=== PATIENT | female | born 1990 | race Caucasian/White ===

== ENCOUNTER → 2016-12-30 | Outpatient (CLI) | payer BC ==
[~2016-12-30] MED LIST: AMOX875T PO; BUPR-79 PO
[2016-12-30 16:38] LABS: HEMATOCRIT 44.2 % (37-47)
[2016-12-30 17:08] LABS: PROLACTIN 5.31 ng/mL
== END | disposition home or self-care (01) ==
LOC: C.LAB 15:09
PROVIDERS: ATTEND Obstetrics & Gynecology
DX: N92.5 Other specified irregular menstruation (principal)

== ENCOUNTER → 2016-12-30 | Outpatient (CLI) | payer BC ==
[2017-01-01 21:57] LABS: CHLAMYDIA TRACH RNA*** NOT DETECTED (NOT DETECTED); GC (NEIS GONORRHOEAE)RNA** NOT DETECTED (NOT DETECTED)
== END | disposition home or self-care (01) ==
LOC: C.LABSPEC 15:49
PROVIDERS: ATTEND Obstetrics & Gynecology
DX: N92.5 Other specified irregular menstruation (principal)

== ENCOUNTER → 2017-01-14 | Outpatient (CLI) | payer BC | END | disposition home or self-care (01) | LOC: C.PAPS 15:21 | PROVIDERS: ATTEND Obstetrics & Gynecology | DX: Z01.419 Encounter for gynecological examination (general) (routine) without abnormal findings (principal) ==

== ENCOUNTER 2017-02-16 16:34 | Emergency (ER) | payer BC, OTHER ==
[~2017-02-16] VITALS: Ht 154.9 cm; Wt 73.0 kg
[~2017-02-16 16:34] MED LIST changes: -AMOX875T PO
[2017-02-16 16:46] VITALS: TEMP 37; Ht 154.9 cm; Wt 73.0 kg
[2017-02-16 17:23] LABS: BASO % 0.5 %; BASO ABS # 0.04 K/uL (0-0.2); COMPLETE YES; EOS % 3.4 %; HEMATOCRIT 40.2 % (37-47); IG% 0.1 %; LYMPH % 30.6 %; LYMPH ABS # 2.24 K/uL (1.2-3.4); MEAN CELL VOLUME 83.6 fL (80-100); MEAN CORPUSCULAR HEMOGLOBIN 28.7 pg (25-34); MEAN CORPUSCULAR HGB CONC 34.3 g/dl (32-36); MEAN PLATELET VOLUME 10.6 fL (7.4-10.4); MONO % 7.5 %; NEUT % 57.9 %; PLATELET COUNT 239 K/uL (130-400); RED BLOOD COUNT 4.81 M/uL (4.2-5.4); WHITE BLOOD COUNT 7.31 K/uL (4.8-10.8)
--- NOTE | 2017-02-16 17:30 | DIAGNOSTIC IMAGING REPORT ---
CT HEAD WITHOUT CONTRAST (CT) CLINICAL HISTORY: Left-sided weakness. Altered mental status. COMPARISON STUDY: 02/16/2007 TECHNIQUE: Axial CT of the brain is performed from the vertex to the skull base. IV contrast was not administered for this examination. CT DOSE: 537.48 mGy.cm FINDINGS: No intra or extra-axial mass lesions are visualized. There is no CT evidence of acute cortical infarction. There is no evidence of midline shift. There is no acute hemorrhage. No calvarial fractures are visualized. There is no evidence of pathologic ventricular dilatation. There is no evidence of acute sinusitis. As there are no CT findings to explain the patient's left-sided weakness, an MRI could be obtained in follow-up if symptoms persist. IMPRESSION: Normal noncontrast head CT. Electronically signed by: Kavon Patel M.D. 02/16/2017 5:29 PM Dictated Date/Time: 02/16/2017 5:28 PM
[2017-02-16 17:34] LABS: INR 0.9 (0.9-1.1); PARTIAL THROMBOPLASTIN RATIO 1.1
--- NOTE | 2017-02-16 17:37 | DIAGNOSTIC IMAGING REPORT ---
CHEST ONE VIEW PORTABLE CLINICAL HISTORY: Altered mental status, weakness. COMPARISON STUDY: No previous studies for comparison. FINDINGS: The cardiac and mediastinal contours are normal. There is no evidence of focal pulmonary consolidation. There is no evidence of failure. No pleural effusions are visualized.[ IMPRESSION: No active disease in the chest. Electronically signed by: Kavon Ptael M.D. 02/16/2017 5:36 PM Dictated Date/Time: 02/16/2017 5:35 PM
[2017-02-16 17:39] LABS: ALT/SGPT 23 U/L (12-78); AST/SGOT 12 U/L (15-37); BLOOD UREA NITROGEN 13 mg/dl (7-18); BUN/CREATININE RATIO 14.5 (10-20); CALCIUM 8.9 mg/dl (8.5-10.1); CARBON DIOXIDE 29 mmol/L (21-32); CHLORIDE 108 mmol/L (98-107); CREATININE 0.88 mg/dl (0.60-1.20); GLUCOSE 90 mg/dl (70-99); MAGNESIUM 2.3 mg/dl (1.8-2.4); POTASSIUM 3.8 mmol/L (3.5-5.1); SODIUM 143 mmol/L (136-145)
[2017-02-16 17:48] LABS: ALKALINE PHOSPHATASE 56 U/L (45-117); CKMB/CK RATIO 0.5 (0-3.0)
--- NOTE | 2017-02-16 18:40 | EMERGENCY ROOM VISIT NOTE ---
History Report prepared by Nafisa: Manuel Alcantar Under the Supervision of: Dr. Wiley Waters D.O. First contact with patient: 16:53 Chief Complaint: NEURO SYMPTOMS Stated Complaint: LEFT SIDE OF BODY KEEPS GOING NUMB History of Present Illness The patient is a 26 year old female who presents to the Emergency Room with complaints of intermittent left sided numbness starting yesterday afternoon. The patient states that the numbness comes on every two hours or so, and nothing specifically makes it come on. She states that her left arm, leg, and face go numb like they are falling asleep. Additionally, the patient states that she is having some weakness in her arm and leg. She states that when she took ibuprofen, and it somewhat helped. The patient states that she takes anxiety medication, she smokes, and she recently stopped taking control. Source of History: patient Onset: yesertday afternoon Position: other (left side) Quality: numbness Timing: intermittent Modifying Factors (Relieving): ibuprofen Associated Symptoms: + weakness Note: Associated symptoms: left leg, arm, and facial numbness. Review of Systems See HPI for pertinent positives & negatives. A total of 10 systems reviewed and were otherwise negative. Past Medical & Surgical Medical Problems: (1) Anxiety Family History Cancer Social History Smoking Status: Current Every Day Smoker Alcohol Use: none Housing Status: lives with family Occupation Status: employed Current/Historical Medications Scheduled Bupropion (Wellbutrin Sr), 150 MG PO DAILY Allergies Coded Allergies: No Known Allergies (Verified , 05/27/12) Physical Exam Vital Signs Date Time Temp Pulse Resp B/P Pulse Ox O2 Delivery O2 Flow Rate FiO2 02/16/17 18:46 68 20 118/70 98 02/16/17 18:12 74 18 120/62 97 Room Air 02/16/17 16:46 37.0 78 20 142/92 99 Physical Exam VITAL SIGNS: were reviewed as above. GENERAL:Non-toxic in appearance. SKIN: Warm dry and pink. HEAD: Normocephalic and atraumatic. OROPHARYNX: Is clear and moist NECK: Supple without lymphadenopathy or meningismus. LUNGS: clear. HEART: Regular rate and rhythm. ABDOMEN: Soft and nontender. EXTREMITIES: Warm and well perfused. NEUROLOGICALLY: Awake alert and oriented without focal deficit. Cranial nerves 2 -12 are intact. There is no pronator drift. Cerebellar testing is within normal limits. There is no nystagmus. There is no facial droop. Speech is clear. Vision is grossly normal. MUSCULOSKELETAL: Good muscle tone. No evidence of trauma. Medical Decision & Procedures ER Provider Diagnostic Interpretation: Radiology results as stated below per my review and radiologist interpretation: CT HEAD WITHOUT CONTRAST (CT) CLINICAL HISTORY: Left-sided weakness. Altered mental status. COMPARISON STUDY: 02/16/2007 TECHNIQUE: Axial CT of the brain is performed from the vertex to the skull base. IV contrast was not administered for this examination. CT DOSE: 537.48 mGy.cm FINDINGS: No intra or extra-axial mass lesions are visualized. There is no CT evidence of acute cortical infarction. There is no evidence of midline shift. There is no acute hemorrhage. No calvarial fractures are visualized. There is no evidence of pathologic ventricular dilatation. There is no evidence of acute sinusitis. As there are no CT findings to explain the patient's left-sided weakness, an MRI could be obtained in follow-up if symptoms persist. IMPRESSION: Normal noncontrast head CT. Electronically signed by: Kavon Patel M.D. 02/16/2017 5:29 PM Dictated Date/Time: 02/16/2017 5:28 PM CHEST ONE VIEW PORTABLE CLINICAL HISTORY: Altered mental status, weakness. COMPARISON STUDY: No previous studies for comparison. FINDINGS: The cardiac and mediastinal contours are normal. There is no evidence of focal pulmonary consolidation. There is no evidence of failure. No pleural effusions are visualized.[ IMPRESSION: No active disease in the chest. Electronically signed by: Kavon Patel M.D. 02/16/2017 5:36 PM Dictated Date/Time: 02/16/2017 5:35 PM Laboratory Results 02/16/17 17:10 Red Blood Count 4.81, Mean Corpuscular Volume 83.6, Mean Corpuscular Hemoglobin 28.7, Mean Corpuscular Hemoglobin Concent 34.3, Mean Platelet Volume 10.6, Neutrophils (%) (Auto) 57.9, Lymphocytes (%) (Auto) 30.6, Monocytes (%) (Auto) 7.5, Eosinophils (%) (Auto) 3.4, Basophils (%) (Auto) 0.5, Neutrophils # (Auto) 4.22, Lymphocytes # (Auto) 2.24, Monocytes # (Auto) 0.55, Eosinophils # (Auto) 0.25, Basophils # (Auto) 0.04 02/16/17 17:10 Test 02/16/17 17:10 White Blood Count 7.31 K/uL (4.8-10.8) Red Blood Count 4.81 M/uL (4.2-5.4) Hemoglobin 13.8 g/dL (12.0-16.0) Hematocrit 40.2 % (37-47) Mean Corpuscular Volume 83.6 fL (80-100) Mean Corpuscular Hemoglobin 28.7 pg (25-34) Mean Corpuscular Hemoglobin Concent 34.3 g/dl (32-36) Platelet Count 239 K/uL (130-400) Mean Platelet Volume 10.6 fL (7.4-10.4) Neutrophils (%) (Auto) 57.9 % Lymphocytes (%) (Auto) 30.6 % Monocytes (%) (Auto) 7.5 % Eosinophils (%) (Auto) 3.4 % Basophils (%) (Auto) 0.5 % Neutrophils # (Auto) 4.22 K/uL (1.4-6.5) Lymphocytes # (Auto) 2.24 K/uL (1.2-3.4) Monocytes # (Auto) 0.55 K/uL (0.11-0.59) Eosinophils # (Auto) 0.25 K/uL (0-0.5) Basophils # (Auto) 0.04 K/uL (0-0.2) RDW Standard Deviation 38.1 fL (36.4-46.3) RDW Coefficient of Variation 12.5 % (11.5-14.5) Immature Granulocyte % (Auto) 0.1 % Immature Granulocyte # (Auto) 0.01 K/uL (0.00-0.02) Prothrombin Time 10.0 SECONDS (9.0-12.0) Prothromb Time International Ratio 0.9 (0.9-1.1) Activated Partial Thromboplast Time 28.9 SECONDS (21.0-31.0) Partial Thromboplastin Ratio 1.1 Anion Gap 6.0 mmol/L (3-11) Est Creatinine Clear Calc Drug Dose 89.3 ml/min Estimated GFR () 105.8 Estimated GFR (Non- 91.3 BUN/Creatinine Ratio 14.5 (10-20) Calcium Level 8.9 mg/dl (8.5-10.1) Magnesium Level 2.3 mg/dl (1.8-2.4) Total Bilirubin 0.2 mg/dl (0.2-1) Direct Bilirubin < 0.1 mg/dl (0-0.2) Aspartate Amino Transf (AST/SGOT) 12 U/L (15-37) Alanine Aminotransferase (ALT/SGPT) 23 U/L (12-78) Alkaline Phosphatase 56 U/L (45-117) Total Creatine Kinase 105 U/L (26-192) Creatine Kinase MB 0.5 ng/ml (0.5-3.6) Creatine Kinase MB Ratio 0.5 (0-3.0) Troponin I < 0.015 ng/ml (0-0.045) Total Protein 7.5 gm/dl (6.4-8.2) Albumin 4.0 gm/dl (3.4-5.0) Lipase 127 U/L (73-393) Thyroid Stimulating Hormone (TSH) 1.150 uIu/ml (0.300-4.500) Laboratory results as stated above per my review. ECG Indication: other (left-sided numbness) Rate (beats per minute): 75 Rhythm: normal sinus Findings: no ectopy, other (No acute injury) ED Course 1653: Previous medical records were reviewed. The patient was evaluated in room A3. A complete history and physical examination was performed. 1843: On reevaluation, the patient is feeling better. I discussed the results and findings with the patient. She verbalized agreement of the treatment plan. She was discharged home. Medical Decision Differential includes acute coronary syndrome, myocardial infarction, CVA, TIA, anemia, infection, pneumonia, UTI, pyelonephritis, poor nutrition, dehydration, electrolyte disturbance,hypoglycemia. This is a 26-year-old female who presents to the ED with a chief complaint of intermittent and random left sided numbness. The patient states that it sometimes involves the left arm, left leg and left face. These do not occur simultaneously. It is random and started yesterday. It lasts for up to an hour or 2. The patient states that currently is involving her left arm. She states the Motrin seems to help. She denies any focal weakness. Her vital signs are stable. Her neurological exam is completely normal. She has good motor and sensory function of the upper or lower extremities. There is no facial droop. EKG shows a normal sinus rhythm. CBC is normal. Complete metabolic panel is normal. Troponin is negative. TSH is normal. A chest x- ray is negative for acute disease. CT scan of head is negative for acute disease. The patient was reassessed. She was told the results. She is felt to be stable for discharge and outpatient follow-up. She was given referral to neurology. Impression Primary Impression: Paresthesia of arm Scribe Attestation The scribe's documentation has been prepared under my direction and personally reviewed by me in its entirety. I confirm that the note above accurately reflects all work, treatment, procedures, and medical decision making performed by me. Departure Information Dispostion Home / Self-Care Referrals Matilda Rodriguez C.R.N.P. (PCP) Jhonathan Arizmendi M.D. (MEDICINE) Forms HOME CARE DOCUMENTATION FORM, IMPORTANT VISIT INFORMATION, WORK / SCHOOL INSTRUCTIONS Patient Instructions My [facility] Additional Instructions Follow-up with Dr. Arizmendi, neurologist, for further evaluation of your symptoms. Follow-up with your doctor for further care and evaluation in 1-5 days. Return to the emergency department for worsening or new symptoms or any concerns. You have been examined and treated today on an emergency basis only. This is not a substitute for, or an effort to provide, complete comprehensive medical care. It is impossible to recognize and treat all injuries or illnesses in a single emergency department visit. It is therefore important that you follow up closely with your doctor. Call as soon as possible for an appointment.
[2017-02-16 18:46] VITALS: BP 118/70; PULSE 68; O2SAT 98
== END 2017-02-16 18:47 | disposition home or self-care (01) ==
LOC: C.EDB 16:36 → C.EDA 18:47
DX: R20.2 Paresthesia of skin (principal); F41.9 Anxiety disorder, unspecified; Z79.899 Other long term (current) drug therapy; F17.210 Nicotine dependence, cigarettes, uncomplicated

== ENCOUNTER → 2017-03-10 | Outpatient (CLI) | payer BC, OTHER ==
[~2017-03-10] MED LIST changes: +AMOX875T PO
== END | disposition home or self-care (01) ==
LOC: C.LAB 14:48
PROVIDERS: ATTEND Obstetrics & Gynecology
DX: Z34.81 Encounter for supervision of other normal pregnancy, first trimester (principal)

== ENCOUNTER → 2017-03-10 | Outpatient (CLI) | payer BC, OTHER ==
[2017-03-19 16:20] LABS: CHLAMYDIA TRACH RNA*** NOT DETECTED (NOT DETECTED); GC (NEIS GONORRHOEAE)RNA** NOT DETECTED (NOT DETECTED)
== END | disposition home or self-care (01) ==
LOC: C.LABSPEC 15:20
PROVIDERS: ATTEND Obstetrics & Gynecology
DX: Z34.81 Encounter for supervision of other normal pregnancy, first trimester (principal)

== ENCOUNTER 2017-04-07 20:16 | Emergency (ER) | payer BC, OTHER ==
[~2017-04-07] VITALS: Ht 154.9 cm; Wt 72.6 kg
[~2017-04-07 20:16] MED LIST changes: -AMOX875T PO
[2017-04-07 20:28] VITALS: TEMP 36.8; Ht 154.9 cm; Wt 72.6 kg
--- NOTE | 2017-04-07 20:55 | EMERGENCY ROOM VISIT NOTE ---
ED Visit Note First contact with patient: 20:38 CHIEF COMPLAINT: Sore throat, cough, ear pain HISTORY of present illness: This 27-year-old female who is 7 weeks presents the ER with chief complaint of sore throat, cough, right ear pain. The patient states she started with a sore throat Friday night. The cough started on Friday and about 3 PM today she started with right ear pain. The patient denies any fever or headache. The patient has been taking Tylenol Cold without any relief of her symptoms. REVIEW OF SYSTEMS: 6 system review was performed and was negative unless stated otherwise in history of present illness. PMH: The patient is healthy; there is no significant medical or surgical history. SOCIAL HISTORY: Patient lives with her daughters. The patient admits to tobacco use but denies any alcohol use. PHYSICAL EXAM: Vital Signs were reviewed: Temperature 36.8, blood pressure 142/ 87, pulse 85, respiratory rate 18 Reviewed Nurse's notes and agree. Oxygen saturation is 100 % on room air which is normal . GENERAL: 27-year-old female appears in no acute distress. MENTAL STATUS: Alert, oriented, coherent. EARS: Canals clear. Right TM with diffuse erythema and bulging. Left TM with good light reflex. NOSE: Nasal mucosa with moderate erythema engorgement. PHARYNX: Moderate erythema, no edema noted. No exudate noted. Airway is adequate. NECK: Supple, non-tender. No lymphadenopathy noted. LUNGS: Clear to auscultation without wheezes rales or rhonchi. CARDIAC: Regular rate and rhythm without murmur. SKIN: No rashes noted. EMERGENCY COURSE: The patient was evaluated. The patient EMR and medication list were reviewed. The patient was given Augmentin 875 mg by mouth. The patient was also given [place] 5/325 mg 2 tablets by mouth for pain since she cannot take ibuprofen since she is . Rapid strep was negative. Culture is pending. The patient was discharged home in stable condition. DIAGNOSIS: Right otitis media Pharyngitis URI DISCHARGE INSTRUCTIONS: Tylenol as needed for fever and pain. Follow sore throat handouts instructions. Call in 24 hours for throat culture results. Take Augmentin as prescribed. If symptoms persist or worsen, follow-up with your family doctor. Patient condition was stable. Please see Emergency Department Medical Record for additional patient information; this may include discharge diagnosis, interpretation of EKG, laboratory, and/or radiologic studies, Emergency Department course, etc. Current/Historical Medications Scheduled Amoxicillin & Pot Clavulanate (Augmentin 875-125 mg), 1 TAB PO BID Bupropion (Wellbutrin Sr), 150 MG PO DAILY Allergies Coded Allergies: No Known Allergies (Verified , 04/07/17) Vital Signs Date Time Temp Pulse Resp B/P Pulse Ox O2 Delivery O2 Flow Rate FiO2 04/07/17 20:28 36.8 85 18 142/87 100 Room Air 04/07/17 20:28 100 Room Air Departure Information Prescriptions Amoxicillin & Pot Clavulanate (Augmentin 875-125 mg) 1 Tab Tab 1 TAB PO BID for 10 Days, #20 TAB Prov: Hue Neri PA-C 04/07/17 Referrals Matilda Rodriguez C.R.N.P. (PCP) Patient Instructions [facility]
[2017-04-07] MEDS ORDERED: AMOX875T PO (20:58)
[2017-04-07] MEDS ORDERED: AMOXICILLIN/CLAVULANATE TAB 875 MG TAB PO ONE (21:00)
[2017-04-07] MEDS ORDERED: HYDROCODONE/ACETAMOPHEN 5/325MG TAB PO STA (21:03)
[2017-04-07 21:21] VITALS: BP 136/74; PULSE 87; O2SAT 99
== END 2017-04-07 21:23 | disposition home or self-care (01) ==
LOC: C.EDB 20:17 → C.EDD 21:23
DX: H66.91 Otitis media, unspecified, right ear (principal); J02.9 Acute pharyngitis, unspecified; R05 Cough; Z33.1 Pregnant state, incidental

== ENCOUNTER 2017-05-02 09:02 | Day surgery (SDC) | payer OTHER ==
--- NOTE | 2017-04-29 17:47 | HISTORY & PHYSICAL EXAMINATION ---
DATE OF ADMISSION: 05/02/2017 CHIEF COMPLAINT: Early demise. HISTORY OF PRESENT ILLNESS: The patient is a 27-year-old 3, para 2 general health is good. She has had no last menstrual period for this . She was dated with an ultrasound done on 04/01/2017 which showed a viable intrauterine fetus 6 weeks 6 days. Her last visit to the office on 04/28/2017 were unable to obtain heart rate, came in the next day, was diagnosed with a demise. By last menstrual period, the fetus should be 10 weeks 6 days, on ultrasound it measures out to be 8 weeks 5 days, no heart activity, presently being scheduled for a D&E for missed . PAST MEDICAL HISTORY: She has 2 children in good health. PAST SURGICAL HISTORY: No previous surgery. ALLERGIES: No known drug allergies. MEDICAL HISTORY: No medical problems. SOCIAL HISTORY: About 5-6 cigarettes a day smoker for 5 years. No history of excessive alcohol intake. Works at [employer]. FAMILY HISTORY: Mom is 46, diagnosed with breast cancer in 2016. Father 47 in good health. Two brothers and 2 sisters in good health. REVIEW OF SYSTEMS: HEAD: No symptoms of frequent or severe headaches. EYES: No symptoms of blurred vision, double vision. EARS: No symptoms of frequent ear infections, difficulty hearing. NOSE: No symptoms of frequent nosebleeds, difficulty breathing through her nose. THROAT: No symptoms of frequent or severe sore throats, difficulty swallowing. RESPIRATORY SYSTEM: No history of asthma, chest pain, shortness of breath. PHYSICAL EXAMINATION: GENERAL: Well-developed, well-nourished 27-year-old white female, alert, oriented x3 and cooperative in no acute distress, appears stated age. EYES: Conjunctivae are pink. Sclerae white, no evidence of jaundice. EARS: Had normal light reflex bilaterally. NOSE: Had normal mucosa. Septum is midline. There were no polyps. THROAT: No erythema or evidence of infection. Teeth are in good state of repair. HEAD: Was normocephalic, normal distribution of hair. NECK: Supple. Trachea midline. Thyroid is not enlarged. There is no adenopathy appreciated. Both carotids are of good intensity. CHEST: Clear to auscultation and percussion. No wheezes, rales or rhonchi appreciated. HEART: Had a regular rhythm. S1 and S2 are normal. BREASTS: Normal. ABDOMEN: Soft and nontender. PELVIC: Revealed a 10 weeks' size uterus, anteverted. There were no adnexal masses appreciated. MUSCULOSKELETAL: Revealed no calf tenderness. IMPRESSIONS OF THIS CASE: First trimester demise, smoker. MTDD
[~2017-05-02] VITALS: Ht 154.9 cm; Wt 72.0 kg
[~2017-05-02 09:02] MED LIST changes: +LACTATED RINGER'S 1000ML 1,000 ML IV SCH
[2017-05-02 09:30] VITALS: BP 128/67; PULSE 71; TEMP 37.4; O2SAT 99; Ht 154.9 cm; Wt 72.0 kg
[2017-05-02 09:51] LABS: BASO % 0.5 %; BASO ABS # 0.03 K/uL (0-0.2); EOS % 4.2 %; HEMATOCRIT 38.5 % (37-47); IG% 0.2 %; LYMPH % 26.6 %; LYMPH ABS # 1.66 K/uL (1.2-3.4); MEAN CELL VOLUME 84.2 fL (80-100); MEAN CORPUSCULAR HEMOGLOBIN 28.2 pg (25-34); MEAN PLATELET VOLUME 10.6 fL (7.4-10.4); MONO % 5.3 %; NEUT % 63.2 %; PLATELET COUNT 228 K/uL (130-400); RED BLOOD COUNT 4.57 M/uL (4.2-5.4); WHITE BLOOD COUNT 6.23 K/uL (4.8-10.8)
[2017-05-02 10:17] LABS: COMPLETE YES; MEAN CORPUSCULAR HGB CONC 33.5 g/dl (32-36)
[2017-05-02] MEDS ORDERED: EpHEDrine SULFATE INJ 50 MG/ML AMP IV PRN (11:30)
[2017-05-02] MEDS ORDERED: PROMETHAZINE HCL INJ 6.25 MG in SODIUM CHLORIDE 0.9% 50ML 50 ML IV PRN (11:30)
[2017-05-02] MEDS ORDERED: ATROPINE SULFATE 0.1 MG/ML 5ML SYR IV PRN (11:30)
[2017-05-02] MEDS ORDERED: ONDANSETRON INJ 2 MG/ML 2 ML VIAL IV PRN ×2 (11:30→12:45)
[2017-05-02] MEDS ORDERED: LIDOCAINE 2% 20 MG/ML 5ML SYR ONE (11:38)
[2017-05-02] MEDS ORDERED: MIDAZOLAM HCL 1 MG/ML 2ML VIAL ONE (11:38)
[2017-05-02] MEDS ORDERED: PROPOFOL IV EMULSION 10 MG/ML 20 ML VIAL IV ONE (11:38)
[2017-05-02] MEDS ORDERED: FENTANYL CITRATE INJ 50 MCG/1 ML 2 ML VIAL ONE ×2 (11:38→12:24)
--- NOTE | 2017-05-02 11:48 | History & Physical Bridge Note ---
H&P Re-Evaluation Bridge Note: I have examined the patient, reviewed the History & Physical and in the interval since the performance of the History & Physical I have noted the following changes of clinical significance: No changes noted
[2017-05-02] MEDS ORDERED: ONDANSETRON INJ 2 MG/ML 2 ML VIAL ONE (12:15)
[2017-05-02] MEDS ORDERED: DEXAMETHASONE SOD INJ 4 MG/ML VIAL ONE (12:15)
[2017-05-02] MEDS ORDERED: OXYTOCIN INJ 10 UNITS/ML VIAL ONE (12:33)
[2017-05-02] MEDS ORDERED: SODIUM CHLORIDE 0.9% 1000ML 1,000 ML IV SCH (12:35)
--- NOTE | 2017-05-02 12:38 | [facility] Post Operative Brief Note ---
Immediate Operative Summary Operative Date May 02, 2017. Pre-Operative Diagnosis missed Post-Operative Diagnosis missed Procedure(s) Performed Dilation and Evacuation Surgeon Dr. Titi Haque Breakdown Man Surgeon(s) none Estimated Blood Loss 200ml Findings uterine contents Specimens A. products of conception Complication(s) None Disposition Recovery Room / PACU
--- NOTE | 2017-05-02 12:39 | Discharge Instructions ---
Discharge Instructions Date of Service May 02, 2017. Visit Reason for Visit: Missed Discharge Discharge Diagnosis / Problem: missed Discharge Goals Goal(s): Learn about illness Activity Recommendations Activity Limitations: as noted below ACTIVITY RECOMMENDATIONS: * Avoid tampons, douching, hot tubs, pools, and intercourse until bleeding has stopped. * May shower as usual. * No strenuous activity for 24-48 hours. After 24-48 hours, you may do anything you feel like doing (driving and sports are okay). SPECIAL CARE INSTRUCTIONS: Special Diet: * Mild nausea may occur in the immediate post-operative period. * Take clear liquids such as tea, cola or bouillon until all nausea has subsided; you may then resume your normal diet. Special Care: * Light bleeding and vaginal spotting can last from a few days to 3-4 weeks. Call your doctor if bleeding becomes heavier than the heaviest part of your period. * Check your temperature twice a day for one week. If it goes above 100.4 degrees Fahrenheit (38.0 Celsius), notify your doctor. * Call your doctor's office for an appointment for 6 weeks after your surgery. FOLLOW-UP VISIT: Call your doctor's office for an appointment for 6 weeks after your surgery. Anesthesia . Post Anesthesia Instructions: If you have had General Anesthesia or IV Sedation: * Do not drive today. * Resume driving when surgeon permits. * Do not make important decisions or sign legal documents today. * Call surgeon for: 1. Temperature elevations greater than 101 degrees F. 2. Uncontrollable pain. 3. Excessive bleeding. 4. Persistent nausea and vomiting. 5. Medication intolerance (nausea, vomiting or rash). * For nausea and vomiting use only clear liquids such as: tea, soda, bouillon until nausea subsides, then gradually increase diet as tolerated. * If you have any concerns or questions, call your surgeon's office. If physician is unavailable and it is an emergency, call 911 or go to the nearest emergency room. . Diet Recommendations Recommended Home Diet: resume previous diet Procedures Procedures Performed: Dilation and Evacuation Pending Studies Studies pending at discharge: no Medical Emergencies . Who to Call and When: Medical Emergencies: If at any time you feel your situation is an emergency, please call 911 immediately. . Non-Emergent Contact Non-Emergency issues call your: [employer] Machine [employer]er Call Non-Emergent contact if: temperature is above 100.5 . . "Provider Documentation" section prepared by Titi Haque. .
[2017-05-02] MEDS ORDERED: OXYCODONE/ACETAMINOPHEN 5-325 TAB PO PRN ×2 (12:45)
[2017-05-02] MEDS ORDERED: KETOROLAC TROMETHAMINE 30 MG/ML VIAL IV. PRN (12:45)
[2017-05-02] MEDS ORDERED: HYDROCODONE/ACETAMOPHEN 5/325MG TAB PO PRN ×4 (12:45)
[2017-05-02] MEDS ORDERED: IBUPROFEN 600 MG TAB PO PRN (12:45)
[2017-05-02] MEDS: FENTANYL CITRATE INJ 50 MCG/1 ML 2 ML VIAL IV PRN ×2 (13:00→13:17)
--- NOTE | 2017-05-02 13:25 | Anesthesiology Progress Note ---
Anesthesia Post Op Note Date & Time May 02, 2017 at 13:24 Vital Signs Pain Intensity: 6.0 Vital Signs Past 12 Hours Date Time Temp Pulse Resp B/P (MAP) Pulse Ox O2 Delivery O2 Flow Rate FiO2 05/02/17 12:47 36.3 81 16 114/70 100 Mask 5 05/02/17 09:30 37.4 71 16 128/67 (87) 99 Room Air Notes Mental Status: alert / awake / arousable, participated in evaluation Pt Amnestic to Procedure: Yes Nausea / Vomiting: adequately controlled Pain: adequately controlled Airway Patency, RR, SpO2: stable & adequate BP & HR: stable & adequate Hydration State: stable & adequate Anesthetic Complications: no major complications apparent
[2017-05-02 13:45] VITALS: BP_SYST 103; BP_SYST 107; BP_DIAS 60; BP_DIAS 63; PULSE 70; PULSE 71; TEMP 36.9; O2SAT 97; O2SAT 98
[2017-05-02 14:15] VITALS: BP 103/63; PULSE 70; TEMP 36.9; O2SAT 98
--- NOTE | 2017-05-02 14:15 | OPERATIVE REPORT ---
DATE OF OPERATION: 05/02/2017 PROCEDURE: Suction evacuation of uterine contents. INDICATIONS FOR SURGERY: demise at about 8-1/2 weeks gestation. PREOPERATIVE DIAGNOSIS: Missed . POSTOPERATIVE DIAGNOSIS: Same. Pathology pending. SURGEON: Dr. Haque. ESTIMATED BLOOD LOSS: 200 mL. ANESTHESIA: General. OPERATIVE FINDINGS AND PROCEDURE: The patient was brought to the OR table, correctly identified by armband and conversation. General anesthesia was administered. Perineum and vagina were painted with Betadine paint, draped in usual sterile fashion. Catheter was used to empty the bladder. Careful pelvic exam under anesthesia revealed about a 10-week gestational size uterus, mid to retroverted. No adnexal masses appreciated. Weighted speculum was placed in the posterior vagina. Anterior lip of the cervix was grasped with an Allis. Cervix was dilated with graduated dilators and then a #10 suction curet was placed in the uterine cavity. Suction was applied. Clear amniotic fluid and parts and placental tissue could be seen coming through the suction curette. After 2 passes with the suction curette, I placed a sharp curette, gently curetted the uterus and then reapplied the suction curette to remove all remaining fragments and debris. Following this, with IV Pitocin running and a bimanual massage, uterus contracted nicely. Hemostasis was good. I attest to the content of the Intraoperative Record and any orders documented therein. Any exception s are noted below.
[2017-05-02 14:45] VITALS: BP 108/60; PULSE 72; TEMP 36.9; O2SAT 97
== END 2017-05-02 15:15 | disposition home or self-care (01) ==
LOC: C.ACU 09:02
PROVIDERS: ATTEND Obstetrics & Gynecology
DX: O02.1 Missed abortion (principal); F17.210 Nicotine dependence, cigarettes, uncomplicated; Z80.3 Family history of malignant neoplasm of breast

== ENCOUNTER → 2017-05-13 | Outpatient (CLI) | payer OTHER ==
[~2017-05-13] MED LIST changes: -LACTATED RINGER'S 1000ML 1,000 ML IV SCH
[2017-05-13 12:13] LABS: HEMATOCRIT 37.4 % (37-47)
== END | disposition home or self-care (01) ==
LOC: C.LAB 10:38
PROVIDERS: ATTEND Obstetrics & Gynecology
DX: N92.0 Excessive and frequent menstruation with regular cycle (principal)